=== PATIENT | male | born 1980 | race Caucasian/White ===

== ENCOUNTER 2020-02-10 12:56 | Emergency (ER) | payer MEDICAID ==
[2020-02-10] MEDS ORDERED: MAGNESIUM CITRATE 296 ML BOTTLE PO STA (13:31)
[2020-02-10] MEDS ORDERED: SODIUM CHLORIDE 0.9% 1,000 ML IV STA (13:31)
[2020-02-10] MEDS ORDERED: KETOROLAC 30 MG/ML VIAL IVP STA (13:31)
[2020-02-10] MEDS ORDERED: MINERAL OIL ENEMA 133 ML BOTTLE RC STA (13:31)
[2020-02-10 13:40] LABS: GLUCOSE, URINE (UA) NEGATIVE (NEGATIVE); KETONES,URINE (UA) 15 mg/dL (NEGATIVE); LEUKOCYTE ESTERASE, URINE NEGATIVE (NEGATIVE); NITRITE,URINE NEGATIVE (NEGATIVE); OCCULT BLOOD,URINE SMALL (NEGATIVE); PH,URINE 5.5 PH (5.0-7.5); PROTEIN,URINE NEGATIVE (NEGATIVE); UROBILINOGEN,URINE 0.2 (NORMAL) E.U./dL (NORMAL)
[2020-02-10 13:44] LABS: BILIRUBIN,URINE NEGATIVE (NEGATIVE); CLARITY,URINE CLEAR (CLEAR); ICTOTEST,URINE NEGATIVE
[2020-02-10 13:47] LABS: BACTERIA,URINE Few /HPF (None Seen); MUCUS,URINE Moderate Strands; RBC,URINE 0-5 /HPF (0-5); SQUAMOUS EPITHELIAL CELL,UR RARE Squamous (<= Few)
[2020-02-10 13:51] LABS: BASOPHILS # (AUTO) 0.1 10^3/uL (0.0-0.1); BASOPHILS % (AUTO) 0.6 %; EOSINOPHILS # (AUTO) 0.1 10^3/uL (0.0-0.7); EOSINOPHILS % (AUTO) 0.6 %; HGB - HEMOGLOBIN 13.8 g/dL (14.0-18.0); LYMPHOCYTES # (AUTO) 1.4 10^3/uL (1.5-3.5); MEAN CORPUSCULAR HEMOGLOBIN 30.1 pg (27.0-31.0); MEAN CORPUSCULAR HGB CONC 33.7 g/dL (32.0-36.0); MEAN CORPUSCULAR VOLUME 89.3 fL (80.0-94.0); MEAN PLATELET VOLUME 8.9 fL (7.4-11.4); MONOCYTES # (AUTO) 0.6 10^3/uL (0.0-1.0); MONOCYTES % (AUTO) 6.7 %; NEUTROPHILS # (AUTO) 7.1 10^3/uL (1.5-6.6); NEUTROPHILS % (AUTO) 76.8 %; PLT - PLATELET COUNT 406 10^3/uL (130-450); RED BLOOD COUNT 4.58 10^6/uL (4.70-6.10); RED CELL DISTRIBUTION WIDTH 12.1 % (12.0-15.0); WHITE BLOOD COUNT 9.3 x10^3/uL (4.8-10.8)
[2020-02-10] MEDS ORDERED: IOVERSOL 320 100 ML VIAL IVP ONE ×2 (13:58→15:11)
[2020-02-10 14:04] LABS: ALBUMIN 4.7 g/dL (3.2-5.5); ALBUMIN/GLOBULIN RATIO 1.4 (1.0-2.2); BILIRUBIN,TOTAL 1.5 mg/dL (0.2-1.0); CALCIUM 9.9 mg/dL (8.5-10.3); CREATININE 0.9 mg/dL (0.6-1.2)
--- NOTE | 2020-02-10 15:09 | ED Physician Documentation ---
PD HPI ABD PAIN - Stated complaint Stated Complaint: UNABLE TO POOP - Chief complaint Chief Complaint: General - History obtained from History obtained from: Patient - History of Present Illness Timing - onset: How many months ago (1) Timing - details: Gradual onset, Still present Quality: Cramping, Aching (The patient states he has had only 1 or 2 bowel movements in the last month and is having a feeling of abdominal fullness and cramping. Seen in the last 2 days ago here in ER with prescription for MiraLAX. He has been trying that without output.) Location: Periumbilical Radiation: No: Lower back, Left flank, Right flank Associated symptoms: Constipation. No: Fever, Nausea, Vomiting, Diarrhea (Will softener and now the MiraLAX for a couple of days a few times a day and an enema at home with only little bit of brown watery output) Similar symptoms before: Has not had sx before Recently seen: Emergency Dept (2 days ago) Review of Systems Constitutional: denies: Fever, Chills Nose: denies: Rhinorrhea / runny nose, Congestion Throat: denies: Sore throat Cardiac: denies: Palpitations Respiratory: denies: Dyspnea, Cough GI: reports: Nausea, Constipation. denies: Abdominal Pain, Vomiting, Diarrhea Skin: denies: Rash, Lesions Musculoskeletal: denies: Back pain Neurologic: denies: Generalized weakness, Focal weakness, Numbness, Near syncope Psychiatric: reports: Anxiety PD PAST MEDICAL HISTORY - Past Medical History Past Medical History: Yes Cardiovascular: None Respiratory: None Neuro: None Endocrine/Autoimmune: None GI: Chronic constipation : None HEENT: None Psych: Depression, Anxiety Musculoskeletal: None, Chronic back pain Derm: None - Past Surgical History Past Surgical History: No - Present Medications Home Medications: Ambulatory Orders Medication Instructions Recorded Confirmed Polyethylene Glycol 3350 [Miralax] 17 gm PO DAILY PRN #1 bottle 02/05/20 02/10/20 - Allergies Allergies/Adverse Reactions: Allergies Allergy/AdvReac Type Severity Reaction Status Date / Time No Known Drug Allergies Allergy Verified 02/05/20 20:32 - Social History Does the pt smoke?: Yes Smoking Status: Former smoker Does the pt drink ETOH?: Yes Does the pt have substance abuse?: No - Immunizations Immunizations are current?: Yes - POLST Patient has POLST: No PD ED PE NORMAL - Vitals Vital signs reviewed: Yes - General General: Alert and oriented X 3, No acute distress, Well developed/nourished - HEENT HEENT: Moist mucous membranes, Pharynx benign - Neck Neck: Supple, no meningeal sign, No adenopathy - Cardiac Cardiac: RRR, No murmur - Respiratory Respiratory: Clear bilaterally - Abdomen Abdomen: Normal bowel sounds, Soft, Non tender, Non distended, No organomegaly - Male Male : Deferred - Rectal Rectal: Other (Rectal exam showed empty vault with minimal brown stool. No melena. no impaction. ) - Back Back: No CVA TTP - Derm Derm: Normal color, Warm and dry - Extremities Extremities: Normal ROM s pain, No edema, No calf tenderness / cord - Neuro Neuro: Alert and oriented X 3, No motor deficit, Normal speech Results - Vitals Vitals: Vital Signs - 24 hr 02/10/20 02/10/20 02/10/20 13:03 15:53 16:14 Temperature 37.2 C 37 C 36.7 C Heart Rate 83 72 73 Respiratory 18 16 18 Rate Blood Pressure 101/79 106/71 113/81 H O2 Saturation 98 98 99 Oxygen O2 Source Room air - Labs Labs: Laboratory Tests 02/10/20 02/10/20 02/10/20 13:30 13:45 13:45 WBC 9.3 RBC 4.58 L Hgb 13.8 L Hct 40.9 L MCV 89.3 MCH 30.1 MCHC 33.7 RDW 12.1 Plt Count 406 MPV 8.9 Neut # (Auto) 7.1 H Lymph # (Auto) 1.4 L [place] # (Auto) 0.6 Eos # (Auto) 0.1 Baso # (Auto) 0.1 Absolute Nucleated RBC 0.00 Nucleated RBC % 0.0 Sodium 138 Potassium 4.3 Chloride 102 Carbon Dioxide 28 Anion Gap 8.0 BUN 10 Creatinine 0.9 Estimated GFR (MDRD) 94 Glucose 97 Calcium 9.9 Total Bilirubin 1.5 H AST 20 ALT 18 Alkaline Phosphatase 61 Total Protein 8.0 Albumin 4.7 Globulin 3.3 Albumin/Globulin Ratio 1.4 Lipase 37 Urine Color YELLOW Urine Clarity CLEAR Urine pH 5.5 Ur Specific [place] >=1.030 H Urine Protein NEGATIVE Urine Glucose (UA) NEGATIVE Urine Ketones 15 H Urine Occult Blood SMALL H Urine Nitrite NEGATIVE Urine Bilirubin NEGATIVE Urine Urobilinogen 0.2 (NORMAL) Ur Leukocyte Esterase NEGATIVE Urine RBC 0-5 Urine WBC 4-5 Ur Squamous Epith Cells RARE Squamous Urine Bacteria Few Urine Mucus Moderate Strands Ur Microscopic Review INDICATED Urine Culture Comments NOT INDICATED - Rads (name of study) abd CT Radiology: Prelim report reviewed (no acute process; minimal stool burden. ), See rad report PD MEDICAL DECISION MAKING - ED course Complexity details: reviewed results, re-evaluated patient, considered differential (History of prolonged constipation with abdominal softness and really not much distention. Wonder if there is a psychogenic component to it.The scan and labs to ensure no more significant cause, such as mass lesion or obstruction. ), d/w patient Departure - Departure Disposition: 01 Home, Self Care Clinical Impression: Abdominal cramping Condition: Stable Record reviewed to determine appropriate education?: Yes Comments: Your CT scan actually looks okay without any signs of acute abnormality. There is not much stool in the colon or intestine. You may be still having some intestinal irritation giving a feeling of fullness or cramps. Stay well-hydrated and use some Tylenol or ibuprofen as needed. At most to continue with just daily stool softener such as a dose of MiraLAX once a day. I would not use more nor use any laxatives as this may just continue to irritate the intestine without necessity as there does not appear to be constipation on your scan. Discharge Date/Time: 02/10/20 16:17
--- NOTE | 2020-02-10 15:18 | CT Report ---
PROCEDURE: Abdomen/Pelvis W INDICATIONS: RLQ Abdominal pain, appendicitis suspected CONTRAST: IV CONTRAST: Optiray 320 ml: 100 PO CONTRAST: *NO PO CONTRAST TECHNIQUE: After the administration of contrast, 5 mm thick sections acquired from the diaphragms to the sym physis. 5 mm thick coronal and sagittal reformats were acquired. For radiation dose reduction, the following was used: automated exposure control, adjustment of mA and/or kV according to patient size . COMPARISON: None. FINDINGS: Image quality: Excellent. ABDOMEN: Lung bases: Lung bases are clear. Heart size is normal. Solid organs: Liver and spleen are normal in size and enhancement. Gallbladder Biliary system is non dilated. Pancreas enhances normally. No adrenal nodules. Kidneys demonstrate normal size an d enhancement, without hydronephrosis. Peritoneum and bowel: Bowel loops demonstrate normal wall thickness and caliber. No free fluid or a ir. Nodes and vessels: No retroperitoneal or mesenteric adenopathy by size criteria. Aorta and inferior vena cava are normal in size. Miscellaneous: No ventral hernias. PELVIS: Genitourinary: Bladder wall thickness is normal. Miscellaneous: No inguinal hernias or adenopathy. The cecum is relatively high within the lower abd omen, rather than within the pelvis. The appendix leading from the cecum was identified, appears norm al, and no adjacent inflammation is found. Bones: No suspicious bony lesions. No vertebral body compression fractures. IMPRESSION: High positioning of the cecum, high positioning of the normal appendix. Source of right lower quadrant pain is not seen. No diverticulitis or urinary tract abnormality is found. Reviewed by: Jeovany Green MD on 02/10/2020 3:17 PM PDT Approved by: Jeovany Green MD on 02/10/2020 3:17 PM PDT Station ID: [id number]
[2020-02-10 16:14] VITALS: BP 113/81
== END 2020-02-10 16:17 | disposition home or self-care (01) ==
LOC: ED 12:56
DX: R10.33 Periumbilical pain (principal); R11.0 Nausea; F41.9 Anxiety disorder, unspecified; Z87.891 Personal history of nicotine dependence
CPT/HCPCS: 36415; 74177; 80053; 81001; 83690; 85025; 96361; 96374; 99284; A9270; Q9967; 81003; 87086

== ENCOUNTER 2020-02-20 13:21 | Emergency (ER) | payer MEDICAID ==
[2020-02-20 16:05] VITALS: BP 110/72
--- NOTE | 2020-02-20 16:15 | ED Physician Documentation ---
History of Present Illness - Stated complaint Stated Complaint: CONSTIPATED - Chief complaint Chief Complaint: Abd Pain - History obtained from History obtained from: Patient - Additonal information Additional information: 39-year-old male presents to the emergency department for reported constipation. He states that he has not had a bowel movement in 6 weeks. He is using MiraLAX twice daily plus Ex-Lax Dulcolax and Colace. He states that when he has a bowel movement it is just water. He is fixated on the thought that he has a fecal impaction. He denies that he has belly pain or fevers. No vomiting. He endorses early satiety when eating. Patient saw his pc tech yesterday. He reports to me that the pc tech told him that he was not constipated and there was no pr oblem. Today patient is insistent that we give him a "hot enema." Patient has a very flat affect. He is somewhat agitated in the exam room. I explained that a recent CAT scan did not show any findings of obstipation. We discussed that a KUB recently was also normal. However he is very insistent that we do something for his constipation. At this time I have advised him to follow-up closely with his primary care doctor Review of Systems Constitutional: reports: Reviewed and negative Ears: reports: Reviewed and negative Throat: reports: Reviewed and negative Cardiac: reports: Reviewed and negative Respiratory: reports: Reviewed and negative GI: reports: Constipation, Diarrhea. denies: Abdominal Pain, Abdominal Swelling, Nausea, Vomiting, Hematemesis, Bloody / black stool : reports: Reviewed and negative Skin: reports: Reviewed and negative Musculoskeletal: reports: Reviewed and negative PD PAST MEDICAL HISTORY - Past Medical History Past Medical History: Yes Cardiovascular: None Respiratory: None Neuro: None Endocrine/Autoimmune: None GI: Chronic constipation : None HEENT: None Psych: Depression, Anxiety Musculoskeletal: None, Chronic back pain Derm: None - Past Surgical History Past Surgical History: No - Present Medications Home Medications: Ambulatory Orders Medication Instructions Recorded Confirmed Polyethylene Glycol 3350 [Miralax] 17 gm PO DAILY PRN #1 bottle 02/05/20 02/10/20 - Allergies Allergies/Adverse Reactions: Allergies Allergy/AdvReac Type Severity Reaction Status Date / Time No Known Drug Allergies Allergy Verified 02/20/20 13:40 - Social History Does the pt smoke?: Yes Smoking Status: Current every day smoker Does the pt drink ETOH?: Yes Does the pt have substance abuse?: No - Immunizations Immunizations are current?: Yes - POLST Patient has POLST: No PD ED PE NORMAL - General General: Alert and oriented X 3, No acute distress - Neck Neck: Supple, no meningeal sign, No adenopathy - Cardiac Cardiac: RRR, No murmur - Respiratory Respiratory: No respiratory distress - Abdomen Abdomen: Normal bowel sounds, Soft, Non tender, Non distended (Soft nontender abdomen. Bowel sounds heard in all 4 quadrants.), No organomegaly - Back Back: No CVA TTP - Derm Derm: Normal color - Extremities Extremities: No deformity - Neuro Neuro: Alert and oriented X 3, tinner helper 2-12 intact Eye Opening: Spontaneous Motor: Obeys Commands Verbal: Oriented GCS Score: 15 - Psych Psych: No: Normal affect (appears agitated) Results - Vitals Vitals: Vital Signs - 24 hr 02/20/20 02/20/20 13:33 16:01 Temperature 36.8 C Heart Rate 83 81 Respiratory 17 18 Rate Blood Pressure 109/71 110/72 O2 Saturation 100 100 Oxygen O2 Source Room air PD MEDICAL DECISION MAKING - ED course Complexity details: reviewed old records, re-evaluated patient, considered differential, d/w patient ED course: 39-year-old male presents to the emergency department with a chief complaint that he has not had a bowel movement for 6 weeks. He recently had a CT scan that showed no obstipation. He also saw a pc tech yesterday who completed a KUB and was reported as normal. Patient insists that he only has water when he defecates. I suspect that he is overusing laxatives. On exam he certainly has no signs of a bowel obstruction. He has no fevers and nontender abdomen. I believe that there is a psychiatric component with these repeated ED visits for concerns of constipation. Patient will be discharged home to follow-up with his primary care doctor. Departure - Departure Disposition: 01 Home, Self Care Clinical Impression: Encounter for medical screening examination Record reviewed to determine appropriate education?: No Comments: Marco you do not appear constipated. The CT scan completed 10 days ago shows no constipation. The pc tech told you yesterday that you were constipated. I believe that you may be overusing the MiraLAX and other laxatives. That would likely explain why you have very little stool output and it is watery. Please schedule a visit with your primary care doctor for follow- up
== END 2020-02-20 16:33 | disposition home or self-care (01) ==
LOC: ED 13:21
DX: Z03.89 Encounter for observation for other suspected diseases and conditions ruled out (principal); F17.200 Nicotine dependence, unspecified, uncomplicated
CPT/HCPCS: 99281